=== PATIENT | female | born 1985 | race Caucasian/White ===

== ENCOUNTER 2020-09-02 08:13 | Outpatient (CLI) | payer OTHER, SELFPAY ==
--- NOTE | 2020-09-05 12:44 | WPDPFTINT ---
PFT Interpretation PFT Interpretation: This PFT met all criteria for ATS standards and reproducibility FEV/FVC post bronchodilator 69% FEV1 94% or 3.20 liters FVC 107% or 4.67 liters There was significant improvement in post bronchodilator FEV1 by 11% and 380 mls TLC 132% RV 178% RV/TLC 45% DLCO 96% when adjusted for alveolar volume but not adjusted for hemoglobin Flow volume loops showed significant expiratory coving Impression: Mild airflow obstruction with good response to bronchodilators. Hyperinlfation and air trapping are present. This pattern is seen in Asthma. Clinical correlation is advised.
== END 2020-09-02 08:14 | disposition home or self-care (01) ==
PROVIDERS: PCP Registered Nurse; Visit Provider Registered Nurse
DX: J45.20 Mild intermittent asthma, uncomplicated (principal)
CPT/HCPCS: 94060; 94726; 94729